=== PATIENT | female | born 1980 | race Caucasian/White ===

== ENCOUNTER 2017-11-12 09:26 | Emergency (ER) | payer MEDICAID ==
[~2017-11-12] VITALS: Ht 165.1 cm; Wt 68.0 kg
[~2017-11-12 09:26] MED LIST: PREN0.01 PO
[2017-11-12 09:28] VITALS: BP 104/53; PULSE 64; RESP 20; TEMP 98.3; O2SAT 99
[2017-11-12 09:48] VITALS: BP 107/53; PULSE 56; RESP 26
--- NOTE | 2017-11-12 09:55 | PD ---
HPI Chief Complaint: Chest Pain Time Seen by Provider: 09:38 Travel History International Travel<30 days: No Contact w/Intl Traveler<30days: No Traveled to known affect area: No History of Present Illness HPI The patient complains of sharp back pain around her right shoulder blade radiating to the front chest pain that radiates with acute onset since about 3 hours prior to arrival. It is not accompanied by [fever, cough, abdominal pain, back pain, nausea, vomiting, diarrhea] . There is been no [alleviating factors. However it is aggravated by movement of her right arm] . The pain has been [sharp constant and worsened by activity-] . There have been [no] similar episodes in the past. Denies any known drug allergies Past medical history Past surgical history: Denies Quit smoking about 4 years ago PFSH Past Medical History Diminished Hearing: No Seizures: Yes (at age 14) ?: Not LMP: 11/02/17 : 0 Para: 0 Miscarriage: 0 Social History Alcohol Use: No Tobacco Use: No Substance Use: No Allergies-Medications (Allergen,Severity, Reaction): Coded Allergies: No Known Allergies (Verified Adverse Reaction, Unknown, 11/12/17) Reported Meds & Prescriptions Reported Meds & Active Scripts Active Review of Systems Except as stated in HPI: all other systems reviewed are Neg General / Constitutional: No: Fever Eyes: No: Visual changes HENT: No: Headaches Cardiovascular: Positive: Chest Pain or Discomfort Respiratory: No: Shortness of Breath Gastrointestinal: No: Abdominal Pain Genitourinary: No: Dysuria Musculoskeletal: No: Pain Skin: No Rash Neurologic: No: Weakness Psychiatric: No: Depression Endocrine: No: Polydipsia Hematologic/Lymphatic: No: Easy Bruising Physical Exam Narrative GENERAL: SKIN: Warm and dry. HEAD: Atraumatic. Normocephalic. EYES: Pupils equal and round. No scleral icterus. No injection or drainage. ENT: No nasal bleeding or discharge. Mucous membranes pink and moist. NECK: Trachea midline. No JVD. CARDIOVASCULAR: Regular rate and rhythm. RESPIRATORY: No accessory muscle use. Clear to auscultation. Breath sounds equal bilaterally. GASTROINTESTINAL: Abdomen soft, non-tender, nondistended. MUSCULOSKELETAL: Extremities without clubbing, cyanosis, or edema. No obvious deformities. Reproducible pain when pressing her right rhombus area, pain radiated around her rib cage towards the front of her chest NEUROLOGICAL: Awake and alert. No obvious cranial nerve deficits. Motor grossly within normal limits. Five out of 5 muscle strength in the arms and legs. Normal speech. PSYCHIATRIC: Appropriate mood and affect; insight and judgment normal. Data Data Last Documented VS Vital Signs Date Time Temp Pulse Resp B/P (MAP) Pulse Ox O2 Delivery O2 Flow Rate FiO2 11/12/17 10:35 50 18 97/61 (73) 100 Room Air 11/12/17 10:04 2.00 11/12/17 09:28 98.3 Orders Orders Electrocardiogram (11/12/17 09:55) Complete Blood Count With Diff (11/12/17 09:55) Comprehensive Metabolic Panel (11/12/17 09:55) D-Dimer (11/12/17 09:55) Prothrombin Time / Inr (Pt) (11/12/17 09:55) Act Partial Throm Time (Ptt) (11/12/17 09:55) Troponin I (11/12/17 09:55) Lipase (11/12/17 09:55) Chest, Single Ap (11/12/17 09:55) Ecg Monitoring (11/12/17 09:55) Bilateral Bp Monitoring (11/12/17 09:55) Iv Access Insert/Monitor (11/12/17 09:55) Oximetry (11/12/17 09:55) Oxygen Administration (11/12/17 09:55) Sodium Chlorid 0.9% 500 Ml Inj (Ns 500 M (11/12/17 10:00) Ed Urine Pregnancytest Poc (11/12/17 09:55) Drug Screen, Random Urine (11/12/17 09:55) Ketorolac Inj (Toradol Inj) (11/12/17 10:00) Orphenadrine Inj (Norflex Inj) (11/12/17 10:00) Labs Laboratory Tests Test 11/12/17 10:10 11/12/17 11:30 White Blood Count 9.3 TH/MM3 Red Blood Count 4.10 MIL/MM3 Hemoglobin 12.3 GM/DL Hematocrit 36.9 % Mean Corpuscular Volume 89.9 FL Mean Corpuscular Hemoglobin 30.1 PG Mean Corpuscular Hemoglobin Concent 33.4 % Red Cell Distribution Width 14.4 % Platelet Count 230 TH/MM3 Mean Platelet Volume 10.2 FL Neutrophils (%) (Auto) 77.5 % Lymphocytes (%) (Auto) 14.5 % Monocytes (%) (Auto) 5.7 % Eosinophils (%) (Auto) 2.0 % Basophils (%) (Auto) 0.3 % Neutrophils # (Auto) 7.2 TH/MM3 Lymphocytes # (Auto) 1.3 TH/MM3 Monocytes # (Auto) 0.5 TH/MM3 Eosinophils # (Auto) 0.2 TH/MM3 Basophils # (Auto) 0.0 TH/MM3 CBC Comment DIFF FINAL Differential Comment Prothrombin Time 10.3 SEC Prothromb Time International Ratio 1.0 RATIO Activated Partial Thromboplast Time 26.1 SEC D-Dimer Quantitative (PE/DVT) 0.22 MG/L FEU Blood Urea Nitrogen 14 MG/DL Creatinine 0.78 MG/DL Random Glucose 96 MG/DL Total Protein 6.8 GM/DL Albumin 3.5 GM/DL Calcium Level 8.9 MG/DL Alkaline Phosphatase 45 U/L Aspartate Amino Transf (AST/SGOT) 10 U/L Alanine Aminotransferase (ALT/SGPT) 13 U/L Total Bilirubin 0.2 MG/DL Sodium Level 137 MEQ/L Potassium Level 4.0 MEQ/L Chloride Level 103 MEQ/L Carbon Dioxide Level 26.1 MEQ/L Anion Gap 8 MEQ/L Estimat Glomerular Filtration Rate 83 ML/MIN Troponin I LESS THAN 0.02 NG/ML Lipase 166 U/L MDM Medical Decision Making Medical Screen Exam Complete: Yes Emergency Medical Condition: Yes Medical Record Reviewed: Yes Interpretation(s) EKG shows a normal sinus rhythm at about 60 bpm with normal intervals, some slight motion artifact but no STEMI pattern noted Differential Diagnosis Chest wall pain versus pneumonia versus pneumothorax versus pulmonary embolus versus STEMI versus pericarditis Narrative Course neg troponin, neg ddimer, ekg nondiagnostic for stemi and patients symptoms improved greatly Diagnosis Primary Impression: musculoskeletal pain Patient Instructions: General Instructions, Muscle Spasm (ED) Scripts Naproxen DR (Naproxen EC) 375 Mg Tabdr 375 MG PO BID, #30 TAB 0 Refills Prov: Michael Jacobsen MD 11/12/17 Tramadol (Ultram) 50 Mg Tab 50 MG PO Q6H Y for PAIN, #10 TAB 0 Refills Prov: Michael Jacobsen MD 11/12/17 Baclofen (Baclofen) 20 Mg Tab 20 MG PO TID for Muscle Spasm, #15 TAB 0 Refills Prov: Michael Jacobsen MD 11/12/17 Disposition: 01 DISCHARGE HOME Condition: Stable Michael Jacobsen MD Nov 12, 2017 09:54
[2017-11-12] MEDS ORDERED: ORPHENADRINE INJ 60 MG/2 ML AMP IM ONE (10:00)
[2017-11-12] MEDS ORDERED: KETOROLAC TROMETHAMINE 30 MG/ML (IVP) VIAL IV PUSH ONE (10:00)
[2017-11-12] MEDS ORDERED: SODIUM CHLORID 0.9% 500 ML INJ 500 ML IV ONE (10:00)
--- NOTE | 2017-11-12 10:34 | RADRPT ---
EXAM DATE/TIME: 11/12/2017 10:14 [facility] COMPARISON: No previous studies available for comparison. INDICATIONS : Chest pain. MEDICAL HISTORY : None. SURGICAL HISTORY : None. ENCOUNTER: Initial ACUITY: 3 days PAIN SCORE: 8/10 LOCATION: Bilateral chest FINDINGS: A single view of the chest demonstrates the lungs to be symmetrically aerated without evidence of mas s, infiltrate or effusion. The cardiomediastinal contours are unremarkable. Osseous structures are intact. CONCLUSION: No acute disease. Albaro Montez MD on November 12, 2017 at 10:31 Board Certified Radiologist. This report was verified electronically.
[2017-11-12 10:35] VITALS: BP 97/61; PULSE 50; PULSE 52; RESP 18; O2SAT 100
[2017-11-12 10:49] LABS: AUTOMATED NEUTROPHIL # 7.2 TH/MM3 (1.8-7.7); BASOPHIL % 0.3 % (0.0-2.0); EOSINOPHIL # 0.2 TH/MM3 (0-0.4); HEMATOCRIT 36.9 % (35.0-46.0); HEMOGLOBIN 12.3 GM/DL (11.6-15.3); LYMPH % 14.5 % (9.0-44.0); LYMPHOCYTE # 1.3 TH/MM3 (1.0-4.8); MEAN CELL VOLUME 89.9 FL (80.0-100.0); MEAN CORPUSCULAR HEMOGLOBIN 30.1 PG (27.0-34.0); MEAN CORPUSCULAR HGB CONC 33.4 % (32.0-36.0); MEAN PLATELET VOLUME 10.2 FL (7.0-11.0); MONO % 5.7 % (0.0-8.0); MONOCYTE # 0.5 TH/MM3 (0-0.9); NEUT % 77.5 % (16.0-70.0); PLATELET COUNT 230 TH/MM3 (150-450); RED CELL DISTRIBUTION WIDTH 14.4 % (11.6-17.2); WHITE BLOOD COUNT 9.3 TH/MM3 (4.0-11.0)
[2017-11-12 11:04] LABS: ALBUMIN 3.5 GM/DL (3.4-5.0); AST (GOT) 10 U/L (15-37); BICARBONATE 26.1 MEQ/L (21.0-32.0); BLOOD UREA NITROGEN 14 MG/DL (7-18); CALCIUM 8.9 MG/DL (8.5-10.1); CREATININE 0.78 MG/DL (0.50-1.00); GLOMERULAR FILTRATION RATE 83 ML/MIN (>89); GLUCOSE,RANDOM 96 MG/DL (74-106)
[2017-11-12 11:05] LABS: ALT (GPT) 13 U/L (10-53)
[2017-11-12 11:08] LABS: PROTHROMBIN TIME - PATIENT 10.3 SEC (9.8-11.6)
[2017-11-12 11:10] LABS: ALKALINE PHOSPHATASE 45 U/L (45-117); CHLORIDE 103 MEQ/L (98-107); SODIUM (NA) 137 MEQ/L (136-145); TOTAL BILIRUBIN ADULT 0.2 MG/DL (0.2-1.0); TOTAL PROTEIN 6.8 GM/DL (6.4-8.2); TROPONIN I LESS THAN 0.02 NG/ML (0.02-0.05)
[2017-11-12 11:11] LABS: D-DIMER 0.22 MG/L FEU (0.00-0.50)
[2017-11-12] MEDS ORDERED: BACL20TA PO (12:28)
[2017-11-12] MEDS ORDERED: TRAM50 PO (12:28)
[2017-11-12] MEDS ORDERED: NAPR375T4 PO (12:28)
--- NOTE | 2017-11-12 19:47 | EKG ---
Date Performed: 11/12/2017 Time Performed: 09:44:27 PTAGE: 37 years EKG: SINUS BRADYCARDIA BORDERLINE ECG INTERPRETATION BASED ON A DEFAULT AGE OF 39 YEARS Since e prior tracing, there has been no significant change PREVIOUS TRACING : 02/24/1994 14.00 DOCTOR: Ramon Wall Interpretating Date/Time 11/12/2017 19:46:57
== END 2017-11-12 14:05 | disposition home or self-care (01) ==
LOC: NEPC 09:26
DX: M79.1 Myalgia (principal); Z87.891 Personal history of nicotine dependence
CPT/HCPCS: 71045; 80053; 80307; 83690; 84484; 84703; 85025; 85379; 85610; 85730; 93005; 96361; 96372; 96374; 99285; J1885; J2360; J7040